=== PATIENT | male | born 1950 | race Hispanic/Latino ===

== ENCOUNTER → 2022-11-08 | Outpatient (CLI) | payer OTHER, SELFPAY ==
[2022-11-08 15:28] LABS: Color, Urine Yellow (Yellow); Glucose, Dipstick 1000 mg/dl (Normal); Ketone-Dipstick Negative (Negative); Leukocyte Esterase-Dipstick 500 /ul (Negative); Nitrite-Dipstick Negative (Negative); Occult Blood-Urine 250 /ul (Negative); Protein-Dipstick 30 mg/dl (Negative); Urine Bilirubin Dipstick Negative (Negative); Urine Clarity Cloudy (Clear); Urine Urobilinogen 4 mg/dl (Normal)
[2022-11-08 15:44] LABS: ALB/GLOB Ratio 0.7 RATIO (0.9-2.4); AST(SGOT) 33 U/L (15-37); Alanine Aminotransfer ALT/SGPT 42 U/L (16-61); Alkaline Phosphatase 314 U/L (45-117); Anion Gap 6 (5-15); BUN 13 mg/dL (7-18); BUN/Creat Ratio 11.6 RATIO (10-20); Calcium,Total 8.8 mg/dL (8.5-10.1); Chloride 108 mmol/L (98-107); Creatinine, Serum 1.12 mg/dL (0.70-1.30); EST Glomerular Filtration Rate 68 mL/min (>60); Est Glom Filt Rate - Afr Amer 82 mL/min (>60); Globulin 4.5 g/dL (2.2-4.2); Glucose 314 mg/dL (74-106); Potassium 3.5 mmol/L (3.5-5.1); Protein, Total 7.5 g/dL (6.4-8.2); Sodium Level 142 mmol/L (136-145)
== END | disposition home or self-care (01) ==
PROVIDERS: Referring Provider Chiropractor; Visit Provider Chiropractor
DX: E11.9 Type 2 diabetes mellitus without complications (principal)
CPT/HCPCS: 36415; 80053; 81002

== ENCOUNTER 2024-01-06 08:36 | Emergency (ER) | payer OTHER, MEDICARE, SELFPAY ==
[2024-01-06 08:37] VITALS: BP 83/50; PULSE 75; RESP 15; TEMP 36.7; O2SAT 93; BMI 29.5
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
[2024-01-06] MEDS: 0.9% Normal Saline (1000mL) 1,000 ML 1000 ML IV (08:43)
[2024-01-06 08:48] VITALS: O2SAT 94
[2024-01-06 08:59] LABS: Absolute Lymphocyte Count 0.97 X10^3/uL (0.83-4.51); Absolute Neutrophil Count 1.8 X10^3/uL (2.0-7.7); Basophil# 0.02 X10^3/uL; Basophil% 0.6 % (0-1); Eosinophil# 0.05 X10^3/uL; Eosinophils% 1.6 % (0-5); Hemoglobin 10.6 g/dL (13.0-16.5); Lymphocyte # 0.97 X10^3/ul (0.83-4.51); Lymphocyte % 31.3 % (19-41); Mean Corp Hgb Conc 34.2 g/dL (32-36); Mean Corpuscular Hgb 33.8 pg (27.0-32.0); Mean Corpuscular Volume 98.7 fL (80-94); Mean Platelet Vol. 11.9 fl (6.2-12.0); Monocyte# 0.25 X10^3/uL; Monocyte% 8.1 % (0-10); NRBC Flagged by Analyzer 0 % (0-5); Neutrophil # 1.79 X10^3/uL (2.7-7.7); Neutrophil % 57.8 % (47-70); POSITIVE COUNT YES; RBC Distribution Width CV 14.1 % (11.6-14.6); RBC Distribution Width SD 50.7 fl (35.1-43.9); Red Blood Count 3.14 M/mm3 (4.6-6.2); White Blood Count 3.1 K/mm3 (4.4-11.0)
[2024-01-06 09:04] LABS: Platelet Count 42 K/mm3 (150-450)
[2024-01-06 09:05] LABS: Differential Indicated SCAN CRITERIA MET
[2024-01-06] MEDS: Diphth,Pertuss(Acell),Tet Vac 0.5 ML Vial IM (09:11)
--- NOTE | 2024-01-06 09:17 | ED.RN ---
DAUGHTER (STEVEN) CALLED AND UPDATED.
[2024-01-06 09:21] LABS: ALB/GLOB Ratio 0.7 RATIO (0.9-2.4); AST(SGOT) 31 U/L (15-37); Alanine Aminotransfer ALT/SGPT 30 U/L (16-61); Albumin, Serum 2.8 g/dL (3.2-5.0); Alkaline Phosphatase 158 U/L (45-117); Anion Gap 6 (5-15); BUN 13 mg/dL (7-18); BUN/Creat Ratio 11.4 RATIO (10-20); Calcium,Total 8.8 mg/dL (8.5-10.1); Chloride 108 mmol/L (98-107); Creatinine, Serum 1.14 mg/dL (0.70-1.30); EST Glomerular Filtration Rate 66 mL/min (>60); Est Glom Filt Rate - Afr Amer 80 mL/min (>60); Estimated Creatinine Clearance 62.29 ml/min; Glucose 215 mg/dL (74-106); Potassium 3.3 mmol/L (3.5-5.1); Protein, Total 6.8 g/dL (6.4-8.2); Sodium Level 142 mmol/L (136-145); Troponin-I HS 5 pg/mL (3.0-78.0)
[2024-01-06] MEDS: 0.9% Normal Saline (1000mL) 1,000 ML 150 ML IV (09:33)
[2024-01-06 09:34] VITALS: BP 126/69; PULSE 82; RESP 17; O2SAT 93
[2024-01-06 09:56] LABS: Platelet Estimate MKD DEC (ADEQ)
[2024-01-06 09:57] LABS: Differential Comment SCANNED
[2024-01-06 09:59] VITALS: BP 115/74; PULSE 85; RESP 17; O2SAT 96
[2024-01-06 10:11] VITALS: BP 130/68; PULSE 86; RESP 16; TEMP 36.7; O2SAT 95
--- NOTE | 2024-01-06 10:14 | ED.RN ---
ATTEMPTED TO CALL STEVEN (DAUGHTER) TO UPDATE ON PATIENTS STATUS.
[2024-01-06] MEDS: fentaNYL 100 MCG/2 ML Ampul 25 MCG IV (10:21)
--- NOTE | 2024-01-06 10:38 | ED.RN ---
REPORT CALLED TO ED RN.
--- NOTE | 2024-01-06 10:39 | ED.RN ---
DAUGHTER AT BEDSIDE. UPDATED BY THIS RN AND DR. CAIN
[2024-01-08 08:49] LABS: Pathologist Review Reviewed
== END 2024-01-06 10:44 | disposition other institution (70) ==
PROVIDERS: Emergency Provider Emergency Medicine; Visit Provider Emergency Medicine
DX: S26.00XA Unspecified injury of heart with hemopericardium, initial encounter (principal); E11.9 Type 2 diabetes mellitus without complications; S22.42XA Multiple fractures of ribs, left side, initial encounter for closed fracture; I10 Essential (primary) hypertension; S22.20XA Unspecified fracture of sternum, initial encounter for closed fracture; V49.40XA Driver injured in collision with unspecified motor vehicles in traffic accident, initial encounter; W22.10XA Striking against or struck by unspecified automobile airbag, initial encounter; Z79.899 Other long term (current) drug therapy; Z79.82 Long term (current) use of aspirin; Z79.84 Long term (current) use of oral hypoglycemic drugs
CPT/HCPCS: 70450; 71260; 72125; 74177; 80053; 82077; 84484; 85025; 86850; 86900; 86901; 90715; 93005; 96361; 96374; 99285; J7030; Q9967